=== PATIENT | male | born 1950 | race Caucasian/White ===

== ENCOUNTER 2018-06-17 00:25 | Emergency (ER) | payer MEDICARE, BC, OTHER ==
[2018-06-17] MEDS ORDERED: CLINDAMYCIN 600 MG INJ IM (02:00)
[2018-06-17] MEDS: CLINDAMYCIN 300 MG INJ IM (02:02)
[2018-06-17] MEDS: DIPHTH/TET/ACEL PERTUSS (ADULT) 0.5 ML VIAL IM* (02:03)
== END 2018-06-17 03:19 | disposition home or self-care (01) ==
LOC: FTE 00:25
DX: S61.451A Open bite of right hand, initial encounter (principal); L08.9 Local infection of the skin and subcutaneous tissue, unspecified; W57.XXXA Bitten or stung by nonvenomous insect and other nonvenomous arthropods, initial encounter; Z23 Encounter for immunization
CPT/HCPCS: 90471; 90715; 96372; 99284-25